=== PATIENT | male | born 1985 | race Caucasian/White ===

== ENCOUNTER → 2017-04-09 | Outpatient (CLI) | payer BC | LOC: LAB 13:15 | PROVIDERS: ATTEND Midwife | DX: N46.9 Male infertility, unspecified (principal) | CPT/HCPCS: 89320 ==

== ENCOUNTER → 2017-04-18 | Outpatient (CLI) | payer BC | LOC: LAB 11:46 | PROVIDERS: ATTEND Midwife | DX: N46.9 Male infertility, unspecified (principal) | CPT/HCPCS: 89320 ==

== ENCOUNTER 2017-05-16 12:07 | Outpatient (RCR) | payer BC | END 2017-06-30 | disposition home or self-care (01) | LOC: LAB 12:07 → EDSTATUS 12:13 | PROVIDERS: ATTEND Midwife | DX: N46.9 Male infertility, unspecified (principal) | CPT/HCPCS: 89320 ==